=== PATIENT | female | born 1965 | race Caucasian/White ===

== ENCOUNTER 2023-09-08 17:07 | Emergency (ER) | payer BC, SELFPAY ==
[2023-09-08 17:18] VITALS: BP 110/69; PULSE 100; RESP 16; TEMP 36.9; O2SAT 95
--- NOTE | 2023-09-08 17:28 | ED.EYEPROB ---
HPI - Eye Problem General Chief complaint: Eye Problems Stated complaint: Eyes Irritation Time Seen by Provider: 09/08/23 17:08 Source: patient Mode of arrival: ambulatory Limitations: no limitations History of Present Illness HPI Narrative: Glendy is a 57-year-old female patient presenting to the clinic today with complaints of bilateral eye irritation and sinus drainage. She reports sinus drainage is has been going on for approximately 6 months. States she has had azithromycin and instant not help. Reports a lot of congestion in her head and years. States over the last 3 days she developed red eyes bilaterally with drainage. Woke up this morning with her eyes matted shut. Notable green drainage coming from the eye at this time. States [place] and was swimming and ocean water and fresh water. Eyes feel gritty. She denies any pain Related Data Home Medications Medication Instructions Recorded Confirmed oxybutynin chloride 15 mg 15 mg PO DAILY 09/08/23 09/08/23 tablet,extended release 24 hr Allergies Allergy/AdvReac Type Severity Reaction Status Date / Time BEE STINGS AdvReac Mild LOCAL Uncoded 09/08/23 17:09 SENSITIVITY Review of Systems Review of Systems: Pertinent positives per HPI. Patient denies any fever, chills, rash, headache, visual changes, dizziness, cough, shortness of breath, chest pain, palpitations, nausea, vomiting, diarrhea, constipation, abdominal pain, or any urinary issues. [facility] Past Medical History Medical History Anxiety Depression Injury of right anterior cruciate ligament Menopausal symptoms OAB (overactive bladder) Postmenopausal HRT (hormone replacement therapy) TMJ arthropathy Surgical History Surgical History History of repair of ACL Hx of hysterectomy Family History Family History Father Hypertension Family history of elevated blood lipids Cerebrovascular accident, Onset Age: 65 Patient's father is Mother Hypertension Family history of elevated blood lipids Family history of diabetes mellitus in first degree relative, Onset Age: 65 Patient's mother is Social History Social History Social History: Divorce Smoking status: Never smoker Second hand tobacco smoke exposure: No Alcohol intake: current Alcohol use details: socially Substance use: never Substance use type: does not use Lack of Transportation: No Lack of Food: Never True Current Housing: I Have Housing Concerned About Future Housing: No Difficulty Paying Gas/Electric Bills: No Difficulty Paying for Meds: No Currently Unemployed: No Education: Decline to Answer Difficulty w/ Childcare or Family Care: No Living arrangements: alone Occupation/Education: occupation Gender identity (if verbalized by the patient): Female Sexual Orientation (if Verbalized by the Patient): Straight or Heterosexual Comments At the time of my signature, I reviewed and agree with the nursing past medical, surgical, social, and family history. There is no relevant family history pertinent to the patient complaint. Exam Narrative: General: Well-developed, well nourished, in no apparent distress Head: Normocephalic, atraumatic Eyes: Pupils equally round and reactive to light bilaterally, EOM intact, sclera and conjunctive injected with green mucopurulent discharge, periorbital swelling bilaterally Ears: TMs intact and clear, ear canals clear, no drainage, grossly hearing normal. Nose: Nares patent, green nasal discharge, severe inflammation, maxillary and frontal sinus tenderness. Mouth: Oral pharynx without lesions or masses, good dentition, MMM. Neck: Supple, trachea midline, no enlarge
== END 2023-09-08 17:37 | disposition home or self-care (01) ==
PROVIDERS: Emergency Provider Nurse Practitioner Family; PCP Family Medicine
DX: H10.33 Unspecified acute conjunctivitis, bilateral (principal); J01.90 Acute sinusitis, unspecified; F41.9 Anxiety disorder, unspecified; F32.A Depression, unspecified
CPT/HCPCS: 99213; G0463

== ENCOUNTER 2024-06-08 07:45 | Outpatient (CLI) | payer BC, SELFPAY ==
--- NOTE | ~2024-06-08 | MM_ITS ---
EXAMINATION: MM screening [facility] BI w tang HISTORY: Screening TECHNIQUE: Craniocaudal and mediolateral oblique 3-D tomosynthesis images were obtained and synthetic 2-D images were generated. CAD analysis was submitted and interpreted. COMPARISON: 02/21/2019 and 05/07/2009 BREAST PARENCHYMAL COMPOSITION: Dense: The breasts are heterogeneously dense, which may obscure small masses FINDINGS: There are developing bilateral breast masses centered in the upper outer quadrant of both b reasts, both involving the middle third. There are no suspicious calcifications or architectural dist ortion. IMPRESSION: 1. New bilateral breast masses. 2. Additional mammographic views and possible breast ultrasound are recommended. BI-RADS Category 0: Incomplete: Needs additional imaging evaluation. Reviewed, dictated and finalized at location B. IMPRESSION: 1. New bilateral breast masses. 2. Additional mammographic views and possible breast ultrasound are recommended . BI-RADS Category 0: Incomplete: Needs additional imaging evaluation.
== END 2024-06-08 07:46 | disposition home or self-care (01) ==
LOC: MICIMG 07:47
PROVIDERS: PCP Family Medicine; Visit Provider Family Medicine
DX: Z12.31 Encounter for screening mammogram for malignant neoplasm of breast (principal); N63.21 Unspecified lump in the left breast, upper outer quadrant; N63.11 Unspecified lump in the right breast, upper outer quadrant
CPT/HCPCS: 77063; 77067

== ENCOUNTER 2024-07-17 07:50 | Outpatient (CLI) | payer BC, SELFPAY ==
--- NOTE | ~2024-07-17 | MMUS_ITS ---
EXAMINATION: MM diagnostic eli BI w tang, US breast BI complete HISTORY: Follow-up bilateral breast masses and asymmetries. TECHNIQUE: Additional 3-D tomosynthesis images of the breasts were performed and synthetic 2-D images were generated. CAD analysis was submitted and interpreted. High resolution bilateral complete breas t ultrasound was performed. COMPARISON: Comparison to multiple prior studies sequentially, with oldest reviewed study dated 02/21. BREAST PARENCHYMAL COMPOSITION: Dense: The breasts are heterogeneously dense, which may obscure small masses FINDINGS: MAMMOGRAPHIC FINDINGS: There are obscured bilateral breast masses secondary to dense fibroglandular tissue. No suspicious ca lcifications or architectural distortion. ULTRASOUND: Complete US of all 4 quadrants of the breast/s and retroareolar region was reviewed. Right breast: At 8:00, 1 cm from the nipple there is a 7 mm cyst. At 9:00, 5 cm from the nipple there is a 6 mm cyst. At 10:00, 7 cm from the nipple there is a 5 mm cyst. Left breast: At 3:00, 3 cm from the nipple there is an irregular shaped hypoechoic mass measuring 11 x 4 x 4 mm with mixed posterior attenuation and no significant internal vascularity. At 7:00, 3 cm fr om the nipple there is a 5 mm cyst. At 9:00, 2 cm from the nipple there is a cluster of cysts measuri ng up to 7 mm. IMPRESSION: 1. Irregular shaped hypoechoic left breast mass at 3:00, 3 cm from the nipple measuring 11 x 4 x 4 mm . 2. Ultrasound-guided left breast biopsy recommended. BI-RADS category 4, suspicious findings. Reviewed, dictated and finalized at location B. [employer] IMPRESSION: 1. Irregular shaped hypoechoic left breast mass at 3:00, 3 cm from the nipple m easuring 11 x 4 x 4 mm. 2. Ultrasound-guided left breast biopsy recommended. BI-RADS category 4, suspicious findings.
== END 2024-07-17 07:51 | disposition home or self-care (01) ==
LOC: MICIMG 07:51
PROVIDERS: PCP Family Medicine; Visit Provider Physician Assistant
DX: R92.8 Other abnormal and inconclusive findings on diagnostic imaging of breast (principal)
CPT/HCPCS: 76641; 77062; 77066; G0279

== ENCOUNTER 2024-08-22 14:25 | Outpatient (RCR) | payer BC, SELFPAY ==
[2024-08-22 14:32] VITALS: BMI 27.8
== END 2024-11-11 09:26 | disposition home or self-care (01) ==
LOC: ANHDMC 14:25
PROVIDERS: PCP Family Medicine; Visit Provider Physician Assistant
DX: E11.9 Type 2 diabetes mellitus without complications (principal); Z71.3 Dietary counseling and surveillance
CPT/HCPCS: 97802